=== PATIENT | female | born 1945 | race Caucasian/White ===

== ENCOUNTER 2024-08-28 00:41 | Inpatient (IN) | payer BC, SELFPAY ==
[2024-08-27 15:56] VITALS: BP 144/85
[2024-08-27 16:34] LABS: % Basophils 0.4 % (0-2); % Eosinophils 0.4 % (0-6); % Immature Granulocytes 0.3 % (0-0.5); % Lymphocytes 4.1 % (20.5-51.1); % Monocytes 4.7 % (1.7-9.3); % Neutrophils 90.1 % (42.2-75.2); Absolute Basophils 0.1 10^3/uL (0-0.2); Absolute Eosinophils 0.1 10^3/uL (0-0.7); Absolute Immature Granulocytes 0.1 10^3/uL (0-0.05); Absolute Lymphocytes 0.7 10^3/uL (1.2-3.4); Absolute Monocytes 0.8 10^3/uL (0.1-0.6); Absolute Neutrophils 15.1 10^3/uL (1.4-6.5); Hematocrit 42.3 % (37.0-47.0); Hemoglobin 14.7 g/dL (12.0-16.0); Mean Corp Hgb Conc. 34.8 g/dL (33.0-37.0); Mean Corpuscular Hgb 32.6 pg (27.0-31.0); Mean Corpuscular Volume 93.8 fL (81.0-99.0); Mean Platelet Volume 9.3 fL (7.4-10.4); Nucleated Red Blood Cells % 0 %; Platelet Count 307 10^3/uL (130-400); Red Blood Cell Count 4.51 10^6/uL (4.20-5.40); Red Cell Dist. Width 11.6 % (11.5-14.5); White Blood Cell Count 16.8 10^3/uL (4.8-10.8)
[2024-08-27 16:50] LABS: ALT (SGPT) 20 U/L (0-35); AST (SGOT) 29 U/L (14-36); Albumin 4.6 g/dl (3.5-5.0); Alkaline Phosphatase 198 U/L (38-126); Blood Urea Nitrogen 25 mg/dl (7-17); Calcium 9.7 mg/dl (8.4-10.2); Carbon Dioxide 22 mmol/L (22-30); Chloride 98 mmol/L (98-107); Glucose 127 mg/dl (70-99); Potassium 4.4 mmol/L (3.5-5.1); Sodium 132 mmol/L (135-145); Total Bilirubin 0.9 mg/dl (0.2-1.3); Total Protein 7.5 g/dl (6.3-8.2); eGFR > 60.00
[2024-08-27 20:33] VITALS: BMI 20.9
[2024-08-27 20:38] VITALS: BP 132/72
[2024-08-27] MEDS: TYLENOL 650 MG PO (21:53)
[2024-08-27 22:50] VITALS: BP 135/73
[2024-08-27 23:00] VITALS: BP 136/77
--- NOTE | 2024-08-27 23:10 | ED.GENMED ---
History of Present Illness
General
Chief Complaint: Anal/Rectal Problem
Source: patient
Exam Limitations: none
Time Seen by Provider: 08/27/24 20:56
Nursing documentation reviewed up to this point in time: agreed with
History of Present Illness
History of Present Illness:
79-year-old female past medical history of hypertension presenting to the emergency department today with concerns of rectal bleeding starting today. Does take a baby aspirin daily but no additional blood thinners. Does have some lower abdominal
discomfort as well. Denies any chest pain shortness of breath nausea vomiting or fevers.
Review of Systems
Review of Systems
Allergies reviewed?: Yes
All Other Systems: ROS reviewed and negative except as documented in HPI and ROS
Phy Exam
Physical Exam
Physical Exam:
GENERAL: Alert , in no apparent distress
EYE: pupils equal and reactive
NECK: Supple, no significant adenopathy.
ENT: o/p clr, mmm.
CARDIAC: Regular rate and rhythm .
LUNGS: Clear breath sounds bilaterally, no acute respiratory distress, no wheezes/rales/rhonchi
ABDOMEN: Vague discomfort of the patient's left lower quadrant of the abdomenro deficits
SKIN: Warm and dry, skin intact.
MUSCULOSKELETAL: No edema, well perfused.
PSYCH: Normal and appropriate interaction.
Course
Orders/Labs/Results
Orders:
Orders
08/27/24 16:11
Complete Blood Count/With Diff Urgent
Comprehensive Metabolic Panel Urgent
08/27/24 21:19
CT Abd/pelvis W Iv Cont Urgent
Comment:
Reason For Exam: llq abd pain bleeding
Urinalysis Reflex To Culture Urgent
Date Specimen was Collected: 08/27/24
Time Specimen was Collected: 21:48
08/27/24 21:49
Acetaminophen [Tylenol] 650 mg PO NOW STA
08/27/24 22:45
Type+Screen Urgent
08/27/24 22:59
STOOL [C difficile Antigen & Toxins] Urgent
[facility] Source: Feces/Stool
Specimen Description:
Stool Culture Urgent
[facility] Source: Feces/Stool
Specimen Description:
08/27/24 23:11
Piperacillin/Tazo 3.375 Gram [Zosyn] 3.375 gram in 50 ml IV NOW
08/27/24 23:27
ABO2 Urgent
BBK Wristband Number:
Associate notified that ABO2 has been ordered: [id number]
Date: 08/27/24
Time: 23:01
Program Development Manager ID: [id number]
Lactic Acid Urgent
Abnormal Lab Results
08/27/24
16:11
WBC 16.8 H 10^3/uL
(4.8-10.8)
MCH 32.6 H pg
(27.0-31.0)
Abs Immat Gran (auto) 0.1 H 10^3/uL
(0-0.05)
Absolute Neuts (auto) 15.1 H 10^3/uL
(1.4-6.5)
Absolute Lymphs (auto) 0.7 L 10^3/uL
(1.2-3.4)
Absolute Monos (auto) 0.8 H 10^3/uL
(0.1-0.6)
Neutrophils % 90.1 H %
(42.2-75.2)
Lymphocytes % 4.1 L %
(20.5-51.1)
Sodium 132 L mmol/L
(135-145)
BUN 25 H mg/dl
(7-17)
Glucose 127 H mg/dl
(70-99)
Alkaline Phosphatase 198 H U/L
(38-126)
08/27/24 16:11
08/27/24 16:11
Vital Signs
Initial and Last Documented VS:
Initial Vital Signs
Temp Pulse Resp BP Pulse Ox
97.9 F 97 16 144/85 98
08/27/24 15:56 08/27/24 15:56 08/27/24 15:56 08/27/24 15:56 08/27/24 15:56
Last Documented Vital Signs
Temp Pulse Resp BP Pulse Ox
97.9 F 79 24 135/73 97
08/27/24 15:56 08/27/24 22:51 08/27/24 22:51 08/27/24 22:50 08/27/24 20:38
MDM/Problems Addressed
MDM/Problems Addressed:
79-year-old female presenting to the emergency department today with concerns of left-sided abdominal pain as well as rectal bleeding. Started earlier today. Vital signs normal on arrival. White count of 16.8 hemoglobin 14.7. BUN slightly
elevated. CT scan performed that showed acute colitis. Likely infectious started on antibiotics.
Patient was presented with paperwork for blood transfusion as needed if bleeding is worsening. She claims that she would not like to receive any blood.
*Critical Care Note
Total Time (30-74mins, 75-104mins- exclusive of procedures): Not Applicable
ED Attending Note
-
Portions of this chart may have been created with voice recognition software.� Occasional wrong word or��sound alike� substitutions may have occurred due to the inherent limitations of voice recognition software.
Discharge Plan
Departure
Patient Disposition: Admit
Date of Disposition: 08/28/24
Time of Disposition: 00:00
Admit to: Med/Surg
Admit to doctor: Julieta
Presentation/result/management discussed w/ accepting MD/DO: Hospitalist
Patient with high blood pressure during this ER visit?: No
Condition: Good
Covid-19: Not Applicable
Discharge Problem:
Colitis, GI bleed
Referrals:
UNKNOWN - PT DOES,NOT KNOW [Family Provider] -
Interventions
Interventions:
*Risk Screen - Suicide Last Done: 08/27/24 15:56
*General Assessment Last Done: 08/27/24 20:34
*Neglect/Abuse Screening Last Done: 08/27/24 15:56
LZ-Mngdyk-Uenbnnhfxq Assessment Last Done: 08/27/24 20:34
ED-Skin Assessment Last Done: 08/27/24 20:34
Discharge Date and Time
Print Language: LUX[place]BOURGISH
[2024-08-27] MEDS: ZOSYN 50 IV (23:34)
[2024-08-27 23:51] LABS: Lactic Acid 1.5 mmol/L (0.7-2.0)
[2024-08-28] VITALS (8 sets, daily range): BP systolic 110–153; BP diastolic 60–75; BMI 20.9; BMI 20.8
--- NOTE | 2024-08-28 00:15 | HPS.HSE ---
Family Physician
-
Family Physician: NOT KNOW UNKNOWN - PT DOES
Chief Complaint
-
Abdominal pain and rectal bleeding
History of Present Illness
This is a 79-year-old female with medical history of proximal atrial fibrillation, hypertension, history of nephrectomy bladder resection who presents to the emergency department with episode of rectal bleeding.
Patient reported that episode started at around 10 AM yesterday. She suddenly developed abdominal bloating constipation and pain. She denied any nausea or vomiting. She denied any fevers or chills. She went to sit on the commode and was there
for about 1 hour when she suddenly had bright red blood per rectum. This was also mixed with some stool. She reported that this episode persisted throughout the afternoon and when she had second bloody bowel movement she said to come to the
emergency department. She denies any recent travels. She has no known sick contacts. She takes a baby aspirin daily. She denies any NSAIDs or anticoagulation.
Patient denies prior colonoscopy. She did report that she has had Cologuard test and she had one last that was slightly positive in the setting of hemorrhoidal bleed. She denies any history of known diverticulosis.
In the emergency department she was afebrile, blood pressure was 135/5 with a pulse of 79. She was satting 99% on room air. CBC was notable for a white count of 16,000, hemoglobin 14.7 and platelet of 307. Electrolytes BUN/creatinine were mostly
unremarkable except for a sodium of 132. CT of the abdomen pelvis showed acute left sided colitis. No diverticulitis, diverticulosis noted.
Medical History
Past Medical History
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
Past Surgical History: Reports Urological (Left-sided nephrectomy, ureteral and partial bladder resection.)
Social History
Tobacco: Former Smoker
Alcohol: None
Drug: None
Personal:
Living: Alone
Employment: Retired
Family History
Family History: Not pertinent
Allergies / Home Medications
Allergies reflects when Allergies were last updated in [facility].
Home Medications with original date entered in [facility]
Allergy/Medication List:
Allergies
Allergy/AdvReac Type Severity Reaction Status Date / Time
apixaban [From Eliquis] Allergy Unknown Verified 08/27/24 16:02
codeine Allergy Nausea / Verified 08/27/24 16:02
Vomiting
erythromycin base Allergy Unknown Verified 08/27/24 16:02
all pain medicine Allergy Unknown Uncoded 08/27/24 16:02
Flecainide 50 mg tablet, 50 mg p.o. twice daily
Metoprolol succinate 50 mg tablet, 50 mg p.o. twice daily
Review of Systems
-
History Source: Patient
Constitutional: Reports No Symptoms
EENT: Reports No Symptoms
Respiratory: Reports No Symptoms
Cardiac: Reports No Symptoms
Abdomen/GI: Reports Abdominal Pain and Bloody Stools
: Reports No Symptoms
Musculoskeletal: Reports No Symptoms
Skin: Reports No Symptoms
Neurological: Reports No Symptoms
Endocrine: Reports No Symptoms
Hematologic/Lymphatic: Reports No Symptoms
Psych: Reports No Symptoms
Physical Exam
Vital Signs
Vital Signs
Temp Pulse Resp BP Pulse Ox
97.9 F 79 24 135/73 97
08/27/24 15:56 08/27/24 22:51 08/27/24 22:51 08/27/24 22:50 08/27/24 20:38
Physical Exam
General: Well Developed, Well Nourished, No Apparent Distress and Comfortable
HEENT: NormoCephalic, Anicteric, Moist mucous membranes and Atraumatic
Respiratory: Clear
Cardiac: S1/S2 and Regular Rhythm
Breast: Deferred by me
GI: Soft, Non Tender, Non Distended and Normal Bowel Sounds
Rectal: Red and Hem Positive
Genito-urinary: No costovertebral tender
Musculoskeletal: No Clubbing and No Cyanosis
Skin: Warm
Neuro: AO x 3 and Nonfocal/grossly intact
Hematologic/Lymphatic: No Lymphadenopathy
Psych: Calm
Laboratory Results
-
08/27/24 16:11
08/27/24 16:11
Laboratory Results
Lactic Acid 1.5 mmol/L (0.7-2.0) 08/27/24 23:27
Total Bilirubin 0.9 mg/dl (0.2-1.3) 08/27/24 16:11
AST 29 U/L (14-36) 08/27/24 16:11
ALT 20 U/L (0-35) 08/27/24 16:11
Alkaline Phosphatase 198 U/L (38-126) H 08/27/24 16:11
Data Reviewed
-
CT Scan: Report Reviewed by me
Lab Data: Labs Reviewed by me
Old Records: Reviewed
Impression/Plan
-
IMPRESSION:
79-year-old female with history of proximal atrial fibrillation on baby aspirin, history of bladder cancer status post nephrectomy and partial bladder resection who presents to the emergency department with abdominal pain, rectal bleeding. Found to
have acute left-sided colitis on CT scan without diverticulosis. Bleeding possibly secondary to infectious hemorrhage. Cannot rule out ischemic colitis versus hemorrhoids
PLAN:
1. GI bleed - Infectious colitis likely. Afebrile, hemodynamically stable with hemoglobin of 14.7
- admit to med/surg
- NPO except meds and clears
- IV ceftriaxone/flagyl for now
- stool culture
- trend h/h, type and screen and blood consent
- hold aspirin
- GI consultation
2. AFIb
- continue metoprolol succinate 50 bid with hold parameters
- continue flecainide
DVT PPX - SCDs
Code status - full code, temporary intubation for stabilization. No prolonged artificial support.
[2024-08-28 05:00] LABS: Hemoglobin 13.9 g/dL (12.0-16.0); Mean Corp Hgb Conc. 35.6 g/dL (33.0-37.0); Mean Corpuscular Hgb 33.4 pg (27.0-31.0); Mean Corpuscular Volume 93.8 fL (81.0-99.0); Mean Platelet Volume 9.5 fL (7.4-10.4); Platelet Count 299 10^3/uL (130-400); Red Blood Cell Count 4.16 10^6/uL (4.20-5.40); Red Cell Dist. Width 11.7 % (11.5-14.5); White Blood Cell Count 14.1 10^3/uL (4.8-10.8)
--- NOTE | 2024-08-28 05:00 | EDRN ---
RN heard toilet flush, entered pt.'s room as she was returning to [facility]. Pt. stated, 'I had another bowel movement with blood and some clots'. RN requested for pt. to use bedside commode or bedpan; however, pt. refused, stating 'it's bad enough
using the bathroom in here, I want to use the restroom'. RN will attempt to collect stool sample if pt. uses restroom again.
[2024-08-28 05:21] LABS: Blood Urea Nitrogen 23 mg/dl (7-17); Calcium 9.3 mg/dl (8.4-10.2); Carbon Dioxide 22 mmol/L (22-30); Chloride 99 mmol/L (98-107); Estimated Creatinine Clearance 42 ml/min; Glucose 118 mg/dl (70-99); Potassium 4.2 mmol/L (3.5-5.1); Sodium 133 mmol/L (135-145); eGFR > 60.00
[2024-08-28] MEDS: ZOSYN 50 IV ×3 (05:41→18:42)
[2024-08-28] MEDS: TYLENOL ORAL SOLUTION 650 MG PO ×3 (06:24→20:37)
[2024-08-28] MEDS: TOPROL XL 50 MG PO ×2 (07:36→20:20)
[2024-08-28] MEDS: TAMBOCOR 50 MG PO ×2 (09:16→20:18)
--- NOTE | 2024-08-28 10:39 | CON.GI ---
Addendum entered and electronically signed by Jose Gilbert MD 08/28/24 12:35:
I saw and examined the patient.
The CPHT or PA's note was reviewed and I agree with the note.
Comment: 79yo female presents with bloody diarrhea, lower abd pain. WBC 16.8. CT shows acute L colitis. No prior colonoscopy. She had Cologuard last year that was positive and was recommended colonoscopy, but was reluctant to undergo procedure
due to prior bad experience with prep for ex lap. She has hx ureteral/bladder CA s/p extensive surgeries with recurrence and treatment with chemo instillation. She has chronic constipation, but denies other chronic GI issues
REC:
Check stool c diff, culture
Clears
[id number]-zosyn
Probable acute infectious colitis, but malignancy also in the differential.
I recommended eventual colonoscopy after resolution of acute symptoms in about 6-8 weeks. She was very reluctant to proceed with colonoscopy, but was appreciative of our concern. I explained she could be missing a colon cancer by not proceeding
with colonoscopy. She was at least willing to follow up in the office after d/c to discuss
Original Note:
Consultation
-
Date/Time Consultation Requested: 08/28/24 0050
Date/Time Consultation Performed: 08/28/24 1040
Requesting Provider: Lindsay Soliz MD
Performing Provider: ERNESTINA Anthony, Jose Gilbert MD
Reason for Consultation: colitis
Medical History
Chief Complaint / HPI
Chief Complaint: abdominal pain and bloody diarrhea
History of Present Illness:
Pt is a 79yo with hx afib on ASA, Ureteral/bladder cancer status post left-sided nephrectomy and partial bladder resection then recurrence with 7 tumors in bladder with chemo installation in 2009 follow with alo sam, chronic constipation, right
leg pain with work up with PCP with onset of worsening constipation then looser stool then bloody stools and lower abdominal pain. On admission labs notable for WBC 16,800, hbg 14.7, Na 132, glucose 127 alk phos [address] on
admission notable for acute left sided colitis. In review with patient she had noted + Cologuard last year and recommended colonoscopy but has declined colonoscopy as had difficulty with prep for exp lap in past with prior cancer.
At this time she admits to some weight loss about 10 lb last few weeks. She admits to some nausea without vomiting prior to admission and chronic constipation for which she takes equate daily with continued issues with straining. She denies
other bowel regiments in past. She denies issue with diarrhea or black stools. No recent travel, antibiotics or sick contacts.
Past Medical History
Past Medical History: Arrhythmias (PAF) and Cancer (Ureteral/bladder cancer status post left-sided nephrectomy and partial bladder resection then recurrence with 7 tumors in bladder with chemo installation in 2009 follow with alo sam )
Past Surgical History: Other (nephrectomy/partial bladder resection)
Social History
Tobacco: Former Smoker (quit 2009)
Alcohol: None
Drug: None
Living: Alone
Employment: Retired
Family History
Family History: Other (possible uncle with colon CA )
Allergies / Home Medications
Allergy/AdvReac Type Severity Reaction Status Date / Time
apixaban [From Eliquis] Allergy Unknown Verified 08/27/24 16:02
codeine Allergy Nausea / Verified 08/27/24 16:02
Vomiting
erythromycin base Allergy Unknown Verified 08/27/24 16:02
all pain medicine Allergy Unknown Uncoded 08/27/24 16:02
�Medication �Instructions �Recorded
acetaminophen 650 mg 1,300 mg PO TID 08/28/24
tablet,extended release
aspirin 81 mg tablet,delayed 81 mg PO DAILY 08/28/24
release
docusate sodium 100 mg capsule 200 mg PO HS 08/28/24
(Colace)
flecainide 50 mg tablet 50 mg PO Q12H 08/28/24
metoprolol succinate 50 mg 50 mg PO BID 08/28/24
tablet,extended release 24 hr
(Toprol XL)
therapeutic multivitamin 1 tab PO DAILY 08/28/24
Review of Systems
-
History Source: Patient
Constitutional: Reports Weight Loss
EENT: Reports No Symptoms
Respiratory: Reports No Symptoms
Abdomen/GI: Reports Abdominal Pain, Nausea, Constipated and Bloody Stools
: Reports No Symptoms
Musculoskeletal: Reports Other (right leg pain)
Vital Signs
Temp Pulse Resp BP Pulse Ox
98.2 F 68 11 110/66 97
08/28/24 07:44 08/28/24 09:45 08/28/24 09:45 08/28/24 07:37 08/27/24 20:38
Physical Exam
Exam
General: Well Developed, Well Nourished and No Apparent Distress
HEENT: Normocephalic and Anicteric
Respiratory: Clear
Cardiac: Regular Rhythm
GI: Soft, Non Distended and Tender (lower abdomen )
Musculoskeletal: No Clubbing and No Cyanosis
Skin: Warm and Dry
Neuro: Awake, Alert and AO x 3
Psych: Calm
Results
WBC 14.1 10^3/uL (4.8-10.8) H 08/28/24 04:37
Hgb 13.9 g/dL (12.0-16.0) 08/28/24 04:37
Hct 39.0 % (37.0-47.0) 08/28/24 04:37
MCV 93.8 fL (81.0-99.0) 08/28/24 04:37
Plt Count 299 10^3/uL (130-400) 08/28/24 04:37
Absolute Neuts (auto) 15.1 10^3/uL (1.4-6.5) H 08/27/24 16:11
Sodium 133 mmol/L (135-145) L 08/28/24 04:37
Potassium 4.2 mmol/L (3.5-5.1) 08/28/24 04:37
Chloride 99 mmol/L (98-107) 08/28/24 04:37
Carbon Dioxide 22 mmol/L (22-30) 08/28/24 04:37
BUN 23 mg/dl (7-17) H 08/28/24 04:37
Creatinine 0.9 mg/dL (0.6-1.0) 08/28/24 04:37
Calcium 9.3 mg/dl (8.4-10.2) 08/28/24 04:37
Total Bilirubin 0.9 mg/dl (0.2-1.3) 08/27/24 16:11
AST 29 U/L (14-36) 08/27/24 16:11
ALT 20 U/L (0-35) 08/27/24 16:11
Alkaline Phosphatase 198 U/L (38-126) H 08/27/24 16:11
Diagnostic Image Results:
08/27/24 CT Abd/pelvis W Iv Cont
1. Acute left-sided colitis, likely of infectious/inflammatory etiology.
Prior GI Procedures:
EGD: none
Colonoscopy: none
Assessment / Plan
-
Pt is a 79yo with hx afib on ASA, Ureteral/bladder cancer status post left-sided nephrectomy and partial bladder resection then recurrence with 7 tumors in bladder with chemo installation in 2009 follow with alo sam, chronic constipation, right
leg pain with work up with PCP with onset of worsening constipation then looser stool then bloody stools and lower abdominal pain. On admission labs notable for leukocytosis with normal hbg. CT on admission notable for acute left sided colitis.
In review with patient she had noted + Cologuard last year and recommended colonoscopy but has declined colonoscopy as had difficulty with prep for exp lap in past with prior cancer. Pt also admits to wt loss, nausea, and chronic constipation. No
recent travel, antibiotics or sick contacts.
-left sided colitis
-leukocytosis
-chronic constipation
-hx + Cologuard 1 year ago
other med problems:
-afib on ASA
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
-right leg pain with work up with PCP
PLAN:
etiology of colitis related to infectious etiology, ischemic, less likely IBD vs cannot rule out any underlying colon lesion with hx prior + Cologuard
agree with antibiotics
check stool studies
clear diet as still with bleeding and pain today
trend labs
discussed with colitis and + Cologuard will need to consider colonoscopy 6-8 week to exclude underlying colon cancer-- she is very hesitant about proceeding with issue with bowel prep in past. Reviewed there are other low volume prep and pill preps
at this time. Discussed with proceeding colon cancer cannot be excluded. All questions answered and encouraged to proceed with outpatient testing after admission.
-
-
Thank you for consultation and allowing me to participate in the patient's care. Please call the preparation plant repairer GI physician during the after hours with any questions or concerns.
[2024-08-28 14:23] LABS: Hematocrit 38.8 % (37.0-47.0); Hemoglobin 13.7 g/dL (12.0-16.0)
--- NOTE | 2024-08-28 17:15 | PTCARENOTE ---
08/28- patient transferred and oriented to unit without issue. AAOX3, Abdomen soft/tender to palpation/distended. +BSX4; Skin CDI. Telemetry currently NSR. Patient denies any needs at this time.
--- NOTE | 2024-08-28 17:20 | W.PN.HOSP.TC ---
Addendum entered and electronically signed by Danilo Curiel MD 08/28/24 19:23:
Attending Addendum-
I saw and evaluated the patient. I reviewed the resident�s note and agree with findings and plan as documented in the resident�s note. Sub: Had bloody BM this am. Full 12 point ROS reviewed and negative except as documented Exam: Vitals reviewed in
chart GEN-NAD heart RRR lungs clear abd soft mild generalized tenderness no rebound or guarding ext no edema
Plan:
# GI bleed/ probable acute infectious colitis
- cont care in med/surg
- CLD advance diet as tolerated
- cont zosyn
- stool culture-P
- trend h/h q 12- stable
- GI input appreciated- colonoscopy in 6-8wks, cont current treatment
# Hyponatremia
- hypovolemia
- start IVF
- repeat BMP in am
# Leukocytosis
- trending down
- repeat CBC In am
# AFIb
- continue metoprolol succinate 50 bid with hold parameters
- continue flecainide
# H/O Ureteral/bladder cancer
- status post left-sided nephrectomy and partial bladder resection
DVT PPX - SCDs
Code status-full code
ACP
Patient consented to discuss, was alone, time spent explanation of advance directives, changes in health status, patient�s health care wishes if the patient becomes unable to make health decisions, goals of care, code status, and prognosis 'i just
dont want it to be prolonged'- 16 minutes
Time spent coordinating care, review of plan of care with resident, personally reviewed previous records in EMR, med rec, labs, radiology, d/w nursing, family total time documented is exclusive of any additional time listed that was spent in advance
care planning discussion -�51 minutes
Original Note:
Today's Communication/Plan
-
.
Assessment / Plan
Assessment / Plan
1. Acute GI bleed
- Infectious colitis likely (vs malignancy vs external hemorrhoids)
- Afebrile, hemodynamically stable with hemoglobin of 13.7
- Diet: Clears
- GI Consultation:
-Recommended eventual colonoscopy after resolution of acute symptoms in about 6 to 8 weeks. Malignancy cannot be excluded. Patient reluctant to proceed with colonoscopy. Patient willing to follow-up with gastroenterology in the office after
discharge to discuss.
- IV Zosyn
- Stool culture; Salmonella, Shigella, Campylobacter, Shiga toxin pending
- C. difficile negative, Cryptosporidium negative, Giardia negative
- Trend H/H
- Type and screen and blood consent done
- Hold aspirin
2. Paroxysmal atrial fibrillation
- continue metoprolol succinate 50 bid with hold parameters
- continue flecainide
Anticipated Discharge: 24 - 48 hours
Subjective/Interval History
-
Date of Service: August 28, 2024
Patient seen and examined in a.m., resting comfortably in bed. Patient still complains of abdominal pain, described as crampy, improved from admission. Patient states that she had a bowel movement that it was bloody, similar to past episodes.
Went over the patient's history. Briefly, yesterday started experiencing crampy abdominal pain. Patient attempted to have a bowel movement and sat on the toilet for greater than 1 hour. Upon having bowel movement, noticed that there was bright
red blood mixed with stool in the toilet bowl. Patient then had 1 more episode of bright red blood mixed with stool in the toilet later that evening and came to the emergency department. Patient denies NSAID use, anticoagulation. Patient states
that she has never had a colonoscopy before due to personal choice. Patient also endorses a history of external hemorrhoids, however this episode of bleeding is different.
Objective Data
-
Labs:
Laboratory Results
08/28/24 08/28/24
04:37 14:13
Hgb 13.7
Hct 38.8
Sodium 133 L
Potassium 4.2
Chloride 99
Carbon Dioxide 22
BUN 23 H
Creatinine 0.9
Glucose 118 H
Calcium 9.3
Vital Signs:
Vital Signs
Temp Pulse Resp BP Pulse Ox
99.2 F 74 14 128/71 97
08/28/24 16:36 08/28/24 16:30 08/28/24 16:30 08/28/24 16:30 08/27/24 20:38
Review of Systems
-
History Source: Patient
Respiratory: Reports No Symptoms
Cardiac: Reports No Symptoms
Abdomen/GI: Reports Abdominal Pain (Crampy, improved from arrival) and Bloody Stools
Neuro: Reports No Symptoms
Physical Exam
-
General: Well Developed, Well Nourished, No Apparent Distress, Comfortable and Conversant
HEENT: Normocephalic and Atraumatic
Respiratory: Clear to Auscultation
Cardiac: Regular Rhythm and S1/S2
GI: Soft, Nondistended and Tender (LLQ; NTTP in all other quadrants and epigastrium)
Musculoskeletal: No Clubbing, No Cyanosis and No Edema
Skin: Warm and Dry
Neuro: Awake, Alert and Oriented
Psych: Calm
Data Reviewed
-
CT Scan: Report Reviewed by me and Discussed with Patient
Labs: Labs Reviewed by me and Discussed with Patient
--- NOTE | 2024-08-28 22:04 | PTCARENOTE ---
Pt ordered IV fluids by MD but is refusing stating 'I only have 1 kidney, i am not lugging that into the bathroom and I am not using a commode. I need to sleep ' Explained reasoning to pt but she still refuses, stating 'maybe in the morning'
Notified provider ERNESTINA and she is aware. Plan of care ongoing.
[2024-08-29] MEDS: ZOSYN 50 IV ×5 (00:49→23:27)
[2024-08-29 03:00] VITALS: BP 132/60
[2024-08-29 06:59] LABS: Hematocrit 39.8 % (37.0-47.0); Hemoglobin 13.7 g/dL (12.0-16.0); Mean Corp Hgb Conc. 34.4 g/dL (33.0-37.0); Mean Corpuscular Hgb 32.9 pg (27.0-31.0); Mean Corpuscular Volume 95.7 fL (81.0-99.0); Mean Platelet Volume 9.4 fL (7.4-10.4); Platelet Count 278 10^3/uL (130-400); Red Blood Cell Count 4.16 10^6/uL (4.20-5.40); Red Cell Dist. Width 11.9 % (11.5-14.5); White Blood Cell Count 15.7 10^3/uL (4.8-10.8)
[2024-08-29 07:05] VITALS: BP 128/73
[2024-08-29 07:21] LABS: Blood Urea Nitrogen 14 mg/dl (7-17); Calcium 9.1 mg/dl (8.4-10.2); Carbon Dioxide 27 mmol/L (22-30); Chloride 100 mmol/L (98-107); Estimated Creatinine Clearance 34 ml/min; Glucose 105 mg/dl (70-99); Potassium 4.1 mmol/L (3.5-5.1); Sodium 137 mmol/L (135-145); eGFR 51.11
[2024-08-29 07:30] VITALS: BMI 20.9
[2024-08-29] MEDS: TOPROL XL 50 MG PO ×2 (07:30→19:57)
[2024-08-29] MEDS: TAMBOCOR 50 MG PO ×2 (07:30→19:57)
--- NOTE | 2024-08-29 09:24 | W.PN.GI.CBS2 ---
Today's Communication / Plan
-
Cont abx
Cont clears and advance if doing better
Will reinforce recommendation to get colonoscopy in follow up 2-3 months, but pt indicated reluctance in past and currently
Assessment / Plan
-
Pt is a 79yo with hx afib on ASA, Ureteral/bladder cancer status post left-sided nephrectomy and partial bladder resection then recurrence with 7 tumors in bladder with chemo installation in 2009 follow with alo sam, chronic constipation, right
leg pain with work up with PCP with onset of worsening constipation then looser stool then bloody stools and lower abdominal pain. On admission labs notable for leukocytosis with normal hbg. CT on admission notable for acute left sided colitis.
In review with patient she had noted + Cologuard last year and recommended colonoscopy but has declined colonoscopy as had difficulty with prep for exp lap in past with prior cancer. Pt also admits to wt loss, nausea, and chronic constipation. No
recent travel, antibiotics or sick contacts.
Impression:
L sided colitis likely infectious
-hx + Cologuard 1 year ago
-leukocytosis
-chronic constipation
other med problems:
-afib on ASA
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
-right leg pain with work up with PCP
Subjective
Subjective
Date of Service: August 29, 2024
Brown diarrhea this am. Less abd pain
Objective
Data Reviewed
Laboratory Data:
Laboratory Results
08/29/24 06:32
08/29/24 06:32
Laboratory Results
Total Bilirubin 0.9 mg/dl (0.2-1.3) 08/27/24 16:11
AST 29 U/L (14-36) 08/27/24 16:11
ALT 20 U/L (0-35) 08/27/24 16:11
Alkaline Phosphatase 198 U/L (38-126) H 08/27/24 16:11
Vital Signs and I&O:
Vital Signs
Temp Pulse Resp BP Pulse Ox
97.8 F 60 16 128/73 99
08/29/24 07:05 08/29/24 07:05 08/29/24 07:05 08/29/24 07:05 08/29/24 07:30
I&O
08/28/24 08/29/24 08/30/24
06:59 06:59 06:59
Intake Total 240 / 240
Balance 240 / 240
Physical Exam
Physical Exam
GI: Soft, Non Distended and Tender (mild lower tender)
--- NOTE | 2024-08-29 09:57 | W.PN.UPDATE ---
Update Note
Progress Note Update
Admitted this morning by Dr. Rendon for rectal bleeding and discovered to have left-sided colitis.
Seen by GI with whom I discussed today-plan is to continue with antibiotics and consider colonoscopy inpatient versus outpatient depending on response.
Patient denies any nausea vomiting. She says she is tolerating adequate clear liquids and did not want IV fluids.
Abdominal discomfort present on the left side.
She is tender on the left lower quadrant area. No rebound or guarding or rigidity.
# S1 plus S2 heard regular. She is on the monitor-sinus rhythm. Unclear etiology of the colitis. Patient never had colonoscopy and she is still hesitant to get 1. Told of the various possibilities of etiologies-inflammatory, infectious, ischemic
or malignancy. She will think about it. Her main issue her colonoscopy is preparation she says and told her that i am happy to discuss about various options we have. She will think about it.
[2024-08-29 11:05] VITALS: BP 128/74
[2024-08-29] MEDS: TYLENOL 1000 MG PO ×2 (11:45→20:02)
--- NOTE | 2024-08-29 12:56 | CM ---
Patient seen bedside, initial assessment completed. Patient resides independently in a two story apartment, 22 steps up. Patient has a walker at home which she reports she has been using more of. Patient reports all of her family is out of state.
Patient denies VN, reports SNF in past after hip fracture in 2021, unsure facility name. Patient PCP through [facility], pharmacy used [facility] in [place]. Patient remains on IV antibiotics. CM will
continue to follow for all discharge planning needs.
Plan: home when stable, Pt may benefit from PT evaluations.
[2024-08-29 15:05] VITALS: BP 113/63
[2024-08-29 19:27] VITALS: BP 141/66
[2024-08-29 23:35] VITALS: BP 138/68
[2024-08-30 03:48] VITALS: BP 130/74
[2024-08-30] MEDS: ZOSYN 50 IV ×4 (06:29→23:28)
[2024-08-30 07:03] VITALS: BP 131/77
[2024-08-30] MEDS: TOPROL XL 50 MG PO (07:18)
[2024-08-30] MEDS: TAMBOCOR 50 MG PO ×2 (07:18→20:09)
[2024-08-30] MEDS: TYLENOL 1000 MG PO ×2 (07:28→17:55)
[2024-08-30 08:32] LABS: Hematocrit 40.7 % (37.0-47.0); Hemoglobin 13.9 g/dL (12.0-16.0); Mean Corp Hgb Conc. 34.2 g/dL (33.0-37.0); Mean Corpuscular Hgb 32.5 pg (27.0-31.0); Mean Corpuscular Volume 95.1 fL (81.0-99.0); Mean Platelet Volume 9.9 fL (7.4-10.4); Platelet Count 312 10^3/uL (130-400); Red Blood Cell Count 4.28 10^6/uL (4.20-5.40); Red Cell Dist. Width 11.8 % (11.5-14.5); White Blood Cell Count 11.2 10^3/uL (4.8-10.8)
--- NOTE | 2024-08-30 08:43 | W.PN.HOSP.TC ---
Today's Communication/Plan
-
Advance diet per GI
Continue with IV antibiotics
Restart aspirin if okay from GI standpoint
Assessment / Plan
Assessment / Plan
1. Acute GI bleed
- Infectious colitis likely (vs malignancy vs external hemorrhoids)
- Afebrile, hemodynamically stable
- Improving WBC
- Diet: advance per GI
- GI Consultation:
-Recommended eventual colonoscopy after resolution of acute symptoms in about 6 to 8 weeks. Malignancy cannot be excluded. Patient reluctant to proceed with colonoscopy. Patient willing to follow-up with gastroenterology in the office after
discharge to discuss.
- CW IV Zosyn
- Stool culture pending
- C. difficile negative, Cryptosporidium negative, Giardia negative
- Type and screen and blood consent done
- Resum aspirin if ok from GI standpoint
2. Paroxysmal atrial fibrillation
- continue metoprolol succinate 50 bid with hold parameters
- continue flecainide
Anticipated Discharge: 24 - 48 hours
Subjective/Interval History
-
Date of Service: August 30, 2024
Improved abdominal pain.
She had a bowel movement which was mostly brown. She noticed some blood when she wiped and which she thinks is secondary to hemorrhoids.
Denies any nausea vomiting. Tolerating diet.
She is chronic right hip and knee pain. Today she is feeling worse pain more so. It starts in the outer part of the right hip and goes down up to the knee. No recent trauma. She had a right hip replacement 2 years ago. She has been noticing
this pain for quite a few months. Has not needed anything much more than Tylenol. No back pain.
Objective Data
-
Labs:
Laboratory Results
08/30/24
07:07
WBC 11.2 H
Hgb 13.9
Hct 40.7
Plt Count 312
Sodium Pending
Potassium Pending
Chloride Pending
Carbon Dioxide Pending
BUN Pending
Creatinine Pending
Glucose Pending
Calcium Pending
Vital Signs:
Vital Signs
Temp Pulse Resp BP Pulse Ox
98.1 F 119 16 131/77 97
08/30/24 07:03 08/30/24 07:03 08/30/24 07:03 08/30/24 07:03 08/30/24 07:03
I&O
08/29/24 08/30/24 08/31/24
06:59 06:59 06:59
Intake Total 240 / 240 915 / 915
Balance 240 / 240 915 / 915
Review of Systems
-
Respiratory: Denies Trouble Breathing
Cardiac: Denies Chest Pain
Neuro: Denies Dizzy or Headache
Physical Exam
-
General: No Apparent Distress
HEENT: Moist Mucous Membranes
Respiratory: Clear to Auscultation
Cardiac: Regular Rhythm and S1/S2
GI: Soft, Nondistended, Normal Bowel Sounds and Tender (improved LLQ discomfort)
Musculoskeletal: Other (Tenderness in anto superior iliac crest area )
Neuro: AO x 3
Psych: Calm
Data Reviewed
-
Labs: Labs Reviewed by me
[2024-08-30 08:59] LABS: Carbon Dioxide 24 mmol/L (22-30); Chloride 100 mmol/L (98-107); Estimated Creatinine Clearance 38 ml/min; Glucose 77 mg/dl (70-99); Potassium 3.8 mmol/L (3.5-5.1); Sodium 139 mmol/L (135-145); eGFR 57.31
[2024-08-30 09:09] LABS: Blood Urea Nitrogen 13 mg/dl (7-17)
--- NOTE | 2024-08-30 11:52 | W.PN.GI.CBS2 ---
Today's Communication / Plan
-
Advance to low residue diet
Cont abx
Pt now more amenable to discussing colonoscopy as outpt- f/u in GI office after d/c
Assessment / Plan
-
Pt is a 79yo with hx afib on ASA, Ureteral/bladder cancer status post left-sided nephrectomy and partial bladder resection then recurrence with 7 tumors in bladder with chemo installation in 2009 follow with alo sam, chronic constipation, right
leg pain with work up with PCP with onset of worsening constipation then looser stool then bloody stools and lower abdominal pain. On admission labs notable for leukocytosis with normal hbg. CT on admission notable for acute left sided colitis.
In review with patient she had noted + Cologuard last year and recommended colonoscopy but has declined colonoscopy as had difficulty with prep for exp lap in past with prior cancer. Pt also admits to wt loss, nausea, and chronic constipation. No
recent travel, antibiotics or sick contacts.
Impression:
L sided colitis likely infectious
-hx + Cologuard 1 year ago
-leukocytosis
-chronic constipation
other med problems:
-afib on ASA
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
-right leg pain with work up with PCP
Subjective
Subjective
Date of Service: August 30, 2024
Abd pain is improved. c/o R leg pain. Loose brown BM, no further bleeding
Objective
Data Reviewed
Laboratory Data:
Laboratory Results
08/30/24 07:07
08/30/24 07:07
Laboratory Results
Total Bilirubin 0.9 mg/dl (0.2-1.3) 08/27/24 16:11
AST 29 U/L (14-36) 08/27/24 16:11
ALT 20 U/L (0-35) 08/27/24 16:11
Alkaline Phosphatase 198 U/L (38-126) H 08/27/24 16:11
Vital Signs and I&O:
Vital Signs
Temp Pulse Resp BP Pulse Ox
98.1 F 119 16 131/77 99
08/30/24 07:03 08/30/24 07:03 08/30/24 07:03 08/30/24 07:03 08/30/24 08:30
I&O
08/29/24 08/30/24 08/31/24
06:59 06:59 06:59
Intake Total 240 / 240 915 / 915
Balance 240 / 240 915 / 915
Physical Exam
Physical Exam
GI: Soft, Non Distended and Tender (mild)
[2024-08-30 11:55] VITALS: BP 108/73
[2024-08-30 15:30] VITALS: BP 109/63
[2024-08-30] MEDS: TOPROL XL PO (20:09)
[2024-08-30 23:00] VITALS: BP 111/56
[2024-08-31] MEDS: ZOSYN 50 IV ×4 (04:56→23:38)
[2024-08-31 07:00] VITALS: BP 126/57
[2024-08-31 08:15] LABS: Hematocrit 36.9 % (37.0-47.0); Hemoglobin 12.6 g/dL (12.0-16.0); Mean Corp Hgb Conc. 34.1 g/dL (33.0-37.0); Mean Corpuscular Hgb 32.2 pg (27.0-31.0); Mean Corpuscular Volume 94.4 fL (81.0-99.0); Mean Platelet Volume 9.5 fL (7.4-10.4); Platelet Count 305 10^3/uL (130-400); Red Blood Cell Count 3.91 10^6/uL (4.20-5.40); Red Cell Dist. Width 11.7 % (11.5-14.5); White Blood Cell Count 8.7 10^3/uL (4.8-10.8)
[2024-08-31 08:40] LABS: Blood Urea Nitrogen 19 mg/dl (7-17); Calcium 8.6 mg/dl (8.4-10.2); Carbon Dioxide 24 mmol/L (22-30); Chloride 101 mmol/L (98-107); Estimated Creatinine Clearance 38 ml/min; Glucose 96 mg/dl (70-99); Potassium 3.6 mmol/L (3.5-5.1); Sodium 137 mmol/L (135-145); eGFR 57.31
--- NOTE | 2024-08-31 09:12 | W.PN.GI.CBS2 ---
Addendum entered and electronically signed by Jose Gilbert MD 08/31/24 11:40:
I saw and examined the patient.
The NETWORK ANNOUNCER or PA's note was reviewed and I agree with the note.
Comment: abd pain is improving. No further rectal bleeding
ABD soft NT
REC:
Tolerating low residue diet
Cont abx x 1 week
F/U in the office to discuss colonoscopy, initially reluctant but now more agreeable
Will sign off. Please call back if needed
Original Note:
Today's Communication / Plan
-
cont low residue diet x 2 weeks then slowly advance to regular diet
nursing to give diet instructions
some loose stool 08/30 likely related to colitis and abx use -- some improvement today
reviewed with hospitalist team for transition to PO antibiotics
OP follow up 3-4 weeks and consider colonoscopy 6-8 weeks--offered to call patient to set up but pt wishes to contact office to arrange as issues with rides-- she is unable to do telehealth as does not feel her phone is able and she does not have
email
stable from GI for discharge
[place] text sent to hospitalist for arranging discharge
Assessment / Plan
-
Pt is a 79yo with hx afib on ASA, Ureteral/bladder cancer status post left-sided nephrectomy and partial bladder resection then recurrence with 7 tumors in bladder with chemo installation in 2009 follow with alo sam, chronic constipation, right
leg pain with work up with PCP with onset of worsening constipation then looser stool then bloody stools and lower abdominal pain. On admission labs notable for leukocytosis with normal hbg. CT on admission notable for acute left sided colitis.
In review with patient she had noted + Cologuard last year and recommended colonoscopy but has declined colonoscopy as had difficulty with prep for exp lap in past with prior cancer. Pt also admits to wt loss, nausea, and chronic constipation. No
recent travel, antibiotics or sick contacts.
Impression:
L sided colitis likely infectious
-hx + Cologuard 1 year ago
-leukocytosis
-chronic constipation
other med problems:
-afib on ASA
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
-right leg pain with work up with PCP
PLAN:
cont low residue diet x 2 weeks then slowly advance to regular diet
nursing to give diet instructions
some loose stool 08/30 likely related to colitis and abx use -- some improvement today
reviewed with hospitalist team for transition to PO antibiotics
OP follow up 3-4 weeks and consider colonoscopy 6-8 weeks--offered to call patient to set up but pt wishes to contact office to arrange as issues with rides-- she is unable to do telehealth as does not feel her phone is able and she does not have
email
stable from GI for discharge
[place] text sent to hospitalist for arranging discharge
Subjective
Subjective
Date of Service: August 31, 2024
low residue diet , several stool 08/30, abdominal pain and bleeding improved -- some issues with diet ordered from [facility]
Objective
Data Reviewed
Laboratory Data:
Laboratory Results
08/31/24 07:50
08/31/24 07:50
Laboratory Results
Total Bilirubin 0.9 mg/dl (0.2-1.3) 08/27/24 16:11
AST 29 U/L (14-36) 08/27/24 16:11
ALT 20 U/L (0-35) 08/27/24 16:11
Alkaline Phosphatase 198 U/L (38-126) H 08/27/24 16:11
Vital Signs and I&O:
Vital Signs
Temp Pulse Resp BP Pulse Ox
97.5 F 61 18 126/57 98
08/31/24 07:00 08/31/24 07:00 08/31/24 07:00 08/31/24 07:00 08/31/24 07:00
I&O
08/30/24 08/31/24 09/01/24
06:59 06:59 06:59
Intake Total 915 / 915 980 / 980
Balance 915 / 915 980 / 980
Physical Exam
Physical Exam
HEENT: Anicteric and Moist mucous membranes
Cardiology: Normal Sinus Rhythm
Pulmonary: Clear
GI: Soft, Non Distended and Non Tender
Extremities: No Edema
Neuro: Non Focal
[2024-08-31] MEDS: TAMBOCOR 50 MG PO ×2 (09:14→20:20)
[2024-08-31] MEDS: TOPROL XL 50 MG PO ×2 (09:14→20:20)
[2024-08-31] MEDS: TYLENOL 1000 MG PO ×3 (09:29→21:30)
--- NOTE | 2024-08-31 09:44 | W.PN.HOSP.TC ---
Addendum entered and electronically signed by Danilo Curiel MD 08/31/24 22:07:
Attending Addendum-
I saw and evaluated the patient. I reviewed the resident�s note and agree with findings and plan as documented in the resident�s note. Sub: no further bloody bm. appetite improved. No NV wants to go home. Full 12 point ROS reviewed and negative
except as documented Exam: Vitals reviewed in chart GEN-NAD heart RRR lungs clear abd soft NT ND no rebound or guarding ext no edema
Plan:
# GI bleed/ probable acute infectious colitis
- janessa diet
- cont zosyn transition to PO abx on DC
- stool culture-NGTD
- CBC stable
- GI input appreciated- colonoscopy in 6-8wks, cont current treatment
- PT OT eval
# Hyponatremia
- resolved
- repeat BMP in am
# Leukocytosis
- resolved
- repeat CBC In am
# AFIb
- continue metoprolol succinate 50 bid with hold parameters
- continue flecainide
# H/O Ureteral/bladder cancer
- status post left-sided nephrectomy and partial bladder resection
DVT PPX - SCDs
Code status-full code
Dispo stable for DC today transport need to be set up due to patient living alone. d/w CM this AM
Time spent coordinating care, review of plan of care with resident, personally reviewed records in EMR, med rec, consults, notes, labs, radiology, d/w nursing adn CM � 51 mins
Original Note:
Today's Communication/Plan
-
Discharge today; PT/OT prior to discharge; W/c accessible van for transport procured by CM
Assessment / Plan
Assessment / Plan
1. Acute GI bleed
- Infectious colitis likely (vs malignancy vs external hemorrhoids)
- Afebrile, hemodynamically stable
- Improving WBC
- Diet: Low residue diet, tolerated, to continue for 2 weeks after d/c
- GI Consultation: Recommended eventual colonoscopy after resolution of acute symptoms in about 6 to 8 weeks. Malignancy cannot be excluded. Patient reluctant to proceed with colonoscopy. Patient willing to follow-up with gastroenterology in the
office after discharge to discuss.
- Transition IV Zosyn to Cipro/Flagyl PO at d/c
2. Paroxysmal atrial fibrillation
- continue metoprolol succinate 50 bid with hold parameters
- continue flecainide
Anticipated Discharge: Today
Subjective/Interval History
-
Date of Service: August 31, 2024
Patient seen and examined resting comfortably in bed. Patient is awaiting breakfast. Patient denies any acute complaints this morning. States that she is feeling much better when compared to past days. Patient denies abdominal pain, nausea,
vomiting, constipation. Patient states that she has progressively improving bowel movements, lately has not seen any blood in stool or in toilet bowl. Patient notes that she has had diarrhea over the weekend, however this has improved this morning.
Objective Data
-
Labs:
Laboratory Results
08/31/24
07:50
WBC 8.7
Hgb 12.6
Hct 36.9 L
Plt Count 305
Sodium 137
Potassium 3.6
Chloride 101
Carbon Dioxide 24
BUN 19 H
Creatinine 1.0
Glucose 96
Calcium 8.6
Vital Signs:
Vital Signs
Temp Pulse Resp BP Pulse Ox
97.5 F 61 18 126/57 98
08/31/24 07:00 08/31/24 09:14 08/31/24 07:00 08/31/24 09:14 08/31/24 07:00
I&O
08/30/24 08/31/24 09/01/24
06:59 06:59 06:59
Intake Total 915 / 915 980 / 980
Balance 915 / 915 980 / 980
Review of Systems
-
History Source: Patient
Constitutional: Reports No Symptoms
Respiratory: Reports No Symptoms
Cardiac: Reports No Symptoms
Abdomen/GI: Reports No Symptoms and Diarrhea (improving); Denies Nausea, Vomiting or Bloody Stools
Neuro: Reports No Symptoms
Physical Exam
-
General: Well Developed, Well Nourished and No Apparent Distress
HEENT: Normocephalic and Atraumatic
Respiratory: Clear to Auscultation
Cardiac: Regular Rhythm and S1/S2
GI: Soft, Nontender, Nondistended and Normal Bowel Sounds
Skin: Warm
Neuro: Awake, Alert and Oriented
Psych: Calm
Data Reviewed
-
Labs: Labs Reviewed by me and Discussed with Patient
--- NOTE | 2024-08-31 11:49 | CM ---
Patient seen at bedside.
tt hospitalist regarding PT/OT orders
Patient did say she has had [facility] in the past.
Discussed with patient - await PT rec
IMM explained & signed.
Discussed w/c van as she stated she does not have transport and came via ambulance.
Discussed there would be a cost-agreeable.
PLAN: await PT/OT recs
[2024-08-31 15:16] VITALS: BP 143/68
[2024-08-31] MEDS: HYDROCORTISONE 1% CREAM 1 APPLIC TOPICAL (21:30)
[2024-08-31 22:56] VITALS: BP 124/54
[2024-09-01] MEDS: ZOSYN 50 IV ×2 (05:03→12:57)
[2024-09-01] MEDS: TYLENOL 1000 MG PO ×2 (05:12→13:00)
[2024-09-01 07:48] VITALS: BP 133/58
[2024-09-01] MEDS: HYDROCORTISONE 1% CREAM 1 APPLIC TOPICAL (09:14)
[2024-09-01] MEDS: TAMBOCOR 50 MG PO (09:15)
[2024-09-01] MEDS: TOPROL XL PO (09:15)
[2024-09-01 09:16] VITALS: BP 166/80; PULSE 57; O2SAT 98
[2024-09-01 09:18] VITALS: BP 166/80; PULSE 57; O2SAT 98
--- NOTE | 2024-09-01 09:20 | PTOTSP ---
Patient independent with all bed mobility, transfers, ambulation, and stair climbing. No skilled PT needs, will sign off.
[2024-09-01 10:33] LABS: Hematocrit 37.7 % (37.0-47.0); Hemoglobin 13.3 g/dL (12.0-16.0); Mean Corp Hgb Conc. 35.3 g/dL (33.0-37.0); Mean Corpuscular Hgb 33.1 pg (27.0-31.0); Mean Corpuscular Volume 93.8 fL (81.0-99.0); Mean Platelet Volume 9.2 fL (7.4-10.4); Platelet Count 317 10^3/uL (130-400); Red Blood Cell Count 4.02 10^6/uL (4.20-5.40); Red Cell Dist. Width 11.8 % (11.5-14.5); White Blood Cell Count 7.4 10^3/uL (4.8-10.8)
[2024-09-01 11:21] LABS: Blood Urea Nitrogen 15 mg/dl (7-17); Carbon Dioxide 29 mmol/L (22-30); Chloride 100 mmol/L (98-107); Estimated Creatinine Clearance 38 ml/min; Glucose 155 mg/dl (70-99); Potassium 3.6 mmol/L (3.5-5.1); Sodium 139 mmol/L (135-145); eGFR 57.31
--- NOTE | 2024-09-01 13:26 | W.PN.HOSP.TC ---
Addendum entered and electronically signed by Danilo Curiel MD 09/01/24 23:10:
Attending Addendum-
I saw and evaluated the patient. I reviewed the resident�s note and agree with findings and plan as documented in the resident�s note. Sub: no further bloody bm. appetite improved. Had diarrhea this am non bloody. No NV wants to go home. Full 12
point ROS reviewed and negative except as documented Exam: Vitals reviewed in chart GEN-NAD heart RRR lungs clear abd soft NT ND no rebound or guarding ext no edema
Plan:
# GI bleed/ probable acute infectious colitis
- janessa diet
- zosyn transition to PO abx on DC x 1 week
- stool culture-NGTD
- CBC stable
- GI input appreciated- colonoscopy in 6-8wks, cont current treatment
- PT OT eval- home
# Hyponatremia
- resolved
# Leukocytosis
- resolved
# AFIb
- continue metoprolol succinate 50 bid with hold parameters
- continue flecainide
# H/O Ureteral/bladder cancer
- status post left-sided nephrectomy and partial bladder resection
DVT PPX - SCDs
Code status-full code
Dispo- stable for DC today .transport set up. d/w CM
Time spent coordinating care, DC planning, review of DC plan of care with resident, transition of care, review of records, med rec/scripts sent electronically, consults, notes, d/w consultants, nursing, family, and CM� 32 mins
Original Note:
Today's Communication/Plan
-
.
Assessment / Plan
Assessment / Plan
1. Acute GI bleed
- Infectious colitis likely (vs malignancy vs external hemorrhoids)
- Afebrile, hemodynamically stable
- Improving WBC, stable.
- Diet: Low residue diet, tolerated, to continue for 2 weeks after d/c
- GI Consultation: Recommended eventual colonoscopy after resolution of acute symptoms in about 6 to 8 weeks. Malignancy cannot be excluded. Patient reluctant to proceed with colonoscopy. Patient willing to follow-up with gastroenterology in the
office after discharge to discuss.
- Transition IV Zosyn to Augmentin at D/c
2. Paroxysmal atrial fibrillation
- continue metoprolol succinate 50 bid with hold parameters
- continue flecainide
3. Diarrhea
- Likely secondary to antibiotics
- Last BM visualized by me, not concerning for C Diff Colitis on inspection, no blood, no mucus
- Ordered CBC; no leukocytosis, afebrile
- Patient advised she may have diarrhea while on abx, to look out for blood, mucus, foul smell
Anticipated Discharge: Today
Subjective/Interval History
-
Date of Service: September 01, 2024
Patient seen and examined while resting comfortably in bed. Patient denies abdominal pain or nausea this morning. Patient is concerned about having diarrhea and states that this morning her diarrhea was more in quantity than previous days. Explained
to her that diarrhea is a common side effect of antibiotics, and that the quantity is likely a function of the fact that she only started eating again 1 day ago. Patient in agreement. Last bowel movement was left in the bowl, was visualized by me
and was yellow-brown liquid diarrhea without foul smell. Patient denies any other acute complaints.
Objective Data
-
Labs:
Laboratory Results
09/01/24
10:25
WBC 7.4
Hgb 13.3
Hct 37.7
Plt Count 317
Sodium 139
Potassium 3.6
Chloride 100
Carbon Dioxide 29
BUN 15
Creatinine 1.0
Glucose 155 H
Calcium 9.0
Vital Signs:
Vital Signs
Temp Pulse Resp BP Pulse Ox
97.4 F 56 18 133/58 97
09/01/24 07:48 09/01/24 09:15 09/01/24 07:48 09/01/24 09:15 09/01/24 09:41
I&O
08/31/24 09/01/24 09/02/24
06:59 06:59 06:59
Intake Total 980 / 980 1000 / 1000
Balance 980 / 980 1000 / 1000
Review of Systems
-
History Source: Patient
Constitutional: Reports No Symptoms
Respiratory: Reports No Symptoms
Cardiac: Reports No Symptoms
Abdomen/GI: Reports Diarrhea; Denies Abdominal Pain, Nausea or Vomiting
Neuro: Reports No Symptoms
Physical Exam
-
General: Well Developed, Well Nourished, No Apparent Distress, Comfortable and Conversant
HEENT: Normocephalic, Atraumatic and Anicteric
Respiratory: Clear to Auscultation
Cardiac: Regular Rhythm and S1/S2
GI: Soft, Nontender, Nondistended and Normal Bowel Sounds
Musculoskeletal: No Clubbing, No Cyanosis and No Edema
Skin: Warm and Dry
Neuro: Awake, Alert and Oriented
Psych: Calm
Data Reviewed
-
Labs: Labs Reviewed by me and Discussed with Patient
--- NOTE | 2024-09-01 13:48 | CM ---
Per physician resident, pt will d/c today.
Per PT/OT evaluation, there are no skilled needs
Spoke w/ pt, agreeable to WC van transport and $150 cost
service order clerk to arrange transport, pt is requesting 4 pm cone picker time
Plan: Home; no needs
[2024-09-01 15:31] VITALS: BP 148/80
--- NOTE | 2024-09-01 16:22 | W.DCSUMMARY ---
Addendum entered and electronically signed by Danilo Curiel MD 09/01/24 23:11:
Read, reviewed, and agree. See same day progress note for additional details.
Clemente Curiel MD
Original Note:
Documented by User: Tony Jones DO, Resident 09/01/24 16:34
Discharge Summary
Discharge Data
Date of Admission: 08/28/24
Date of Discharge: 09/01/24
-
Pending Results: No
Hospital Course
WesCalista hu a 79 year old female who presented to [facility] on 08/27/2024 after having 2 episodes of bright red blood per rectum at home. Patient additionally noted some lower abdominal discomfort. Patient exhibited tenderness in the
left lower quadrant of the abdomen and leukocytosis on presentation. CT scan of the abdomen showed acute colitis. Patient was started on Zosyn and admitted to the hospital for IV antibiotics. Patient received a total of 5 days of IV antibiotics
in the hospital. Abdominal examinations were markedly improved by the end of her stay. White blood cell count was within normal limits by the end of her stay. By the last day of admission, patient started to have diarrhea, which is likely side
effect of her antibiotic regimen. The patient was discharged on 09/01/2024 with 5 more days of outpatient oral antibiotics and instructions to follow a low residue diet for 2 more weeks. Additionally, patient was advised to follow-up with the
supervisor customer complaint service on an outpatient basis for further evaluation of lower gastrointestinal bleeding. Since the patient has never had a colonoscopy (out of patient choice), the patient agreed to undergoing further evaluation.
Discharge Plan
-
Patient Disposition: Home (Routine Discharge)
Discharge Diagnosis/Procedures: Acute Colitis
Lower Gastrointestinal Bleed
Condition: Fair
Diet: Low Residue
Additional Diets: low residue x 2 weeks then slowly advance to regular
Activity: As tolerated
Referrals:
Jose Gilbert MD [Active] - (call to schedule follow up with Dr. Gilbert or PRORATE CLERK/PA. Will need to review for colonoscopy and treatment of chronic constipation)
UNKNOWN - PT DOES,NOT KNOW [Family Provider] -
Prescriptions:
New
amoxicillin-pot clavulanate [Augmentin] 500-125 mg tablet
1 tab PO TID 5 Days Qty: 15 0RF
Continued
flecainide 50 mg Tablet
50 mg PO Q12H
metoprolol succinate [Toprol XL] 50 mg Tablet Extended Release 24 Hr
50 mg PO BID
therapeutic multivitamin Tablet
1 tab PO DAILY
aspirin 81 mg Tablet,Delayed Release (Dr/Ec)
81 mg PO DAILY
docusate sodium [Colace] 100 mg Capsule
200 mg PO HS
acetaminophen 650 mg Tablet Extended Release
1,300 mg PO TID Qty: 0 0RF
Discharge Orders:
Discharge Patient (As Directed); Ordered 09/01/24
Ordered By: Tony Jones
Discharge Date and Time
Discharge Date/Time: 09/01/24 16:39
Print Language: DIVEHI

Documented by User: Danilo Curiel MD 09/01/24 23:08
Discharge Summary
Discharge Data
Date of Admission: 08/28/24
Date of Discharge: 09/01/24
Discharge Plan
-
Patient Disposition: Home (Routine Discharge)
Discharge Diagnosis/Procedures: Acute Colitis
Lower Gastrointestinal Bleed
Condition: Fair
Diet: Low Residue
Additional Diets: low residue x 2 weeks then slowly advance to regular
Activity: As tolerated
Referrals:
Jose Gilbert MD [Active] - (call to schedule follow up with Dr. Gilbert or PRORATE CLERK/PA. Will need to review for colonoscopy and treatment of chronic constipation)
UNKNOWN - PT DOES,NOT KNOW [Family Provider] -
Prescriptions:
New
amoxicillin-pot clavulanate [Augmentin] 500-125 mg tablet
1 tab PO TID 5 Days Qty: 15 0RF
Continued
flecainide 50 mg Tablet
50 mg PO Q12H
metoprolol succinate [Toprol XL] 50 mg Tablet Extended Release 24 Hr
50 mg PO BID
therapeutic multivitamin Tablet
1 tab PO DAILY
aspirin 81 mg Tablet,Delayed Release (Dr/Ec)
81 mg PO DAILY
docusate sodium [Colace] 100 mg Capsule
200 mg PO HS
acetaminophen 650 mg Tablet Extended Release
1,300 mg PO TID Qty: 0 0RF
Discharge Orders:
Discharge Patient (As Directed); Ordered 09/01/24
Ordered By: Tony Jones
Discharge Date and Time
Discharge Date/Time: 09/01/24 16:39
Print Language: DIVEHI
== END 2024-09-01 16:39 | disposition home or self-care (01) | DRG 375 ==
LOC: 4 WEST ACU 00:41
PROVIDERS: Internal Medicine; Nurse Practitioner Adult Health; Physician Assistant; Student in an Organized Health Care Education/Training Program; ADMITTING PHYSICIAN Internal Medicine; ATTENDING PHYSICIAN Family Medicine; CONSULT PHYSICIAN Specialist; EMERGENCY PHYSICIAN Emergency Medicine
DX: C18.9 Malignant neoplasm of colon, unspecified (principal); K51.511 Left sided colitis with rectal bleeding; Z79.899 Other long term (current) drug therapy; K59.09 Other constipation; I48.0 Paroxysmal atrial fibrillation; I10 Essential (primary) hypertension; Z90.5 Acquired absence of kidney; Z79.82 Long term (current) use of aspirin; Z87.891 Personal history of nicotine dependence; Z88.5 Allergy status to narcotic agent; Z85.51 Personal history of malignant neoplasm of bladder
CPT/HCPCS: 73502; 74177; 80048; 80053; 83605; 85014; 85018; 85025; 85027; 86850; 86900; 86901; 87045; 87046; 87324; 87328; 87329; 87427; 87449; 96365; 97116; 97161; 97165; 99285; Q9967